=== PATIENT | male | born 1990 | race Caucasian/White ===

== ENCOUNTER 2017-04-21 01:00 | Emergency (ER) | payer MEDICAID ==
--- NOTE | ~2017-04-21 | EKG ---
PATIENT: GENIA FATIMA UNIT #: [id number] Ventricular Rate: 60 BPM Atrial Rate: 60 BPM P-R Interval: 128 ms QRS Duration: 110 ms Q-T Interval: 448 ms QTC Calculation(Bezet): 448 ms P [place]: 76 degrees Calculated R [place]: 115 degrees Calculated T [place]: 48 degrees Diagnosis Line: Sinus rhythm with Premature atrial complexes Diagnosis Line: Right axis deviation Diagnosis Line: Abnormal ECG Diagnosis Line: Diagnosis Line: Confirmed by DEX CALDWELL MD ([id number]) on Diagnosis Line: 04/21/2017 7:33:13 AM INTERPRETING MD: JAVI DENNY
--- NOTE | ~2017-04-21 | CR63 ---
[facility] A Service of [facility] & [facility] RADIOLOGY TEXT RESULTS PATIENT: GENIA FATIMA LOCATION: [facility] : [birth year] UNIT #: [id number] AGE: [address]: Alo Acuña SEX: M ORDER DR: [id number] [facility] [address] [place], [place] [address] [id number] E MR#: [id number] Acc #: [id number] NAME: GENIA FATIMA : 1990 SEX: M STUDY DATE/TIME: 04/21/2017 02:57 UNIT: [facility] ROOM: STUDY DESCRIPTION: CR Chest 2 View Attending Physician: Alo Acuña P.A.-C. Ordering Physician: Alo Acuña P.A.-C. Primary Care Physician: Primary Care Physician No MEDICAL IMAGING REPORT This report is preliminary unless electronic signature is present EXAM Chest x-ray 04/21 at 02:57 INDICATIONS Chest pain and headache that started today. Patient did methamphetamine today. Comparison is 05/23/2012. FINDINGS PA and lateral examination of the chest upright shows a good expansion of the parenchyma with a normal distribution of the pulmonary vascularity. There is no indication of congestion, effusion, infiltrate, tumor, or nodular density. The pleural reflections and diaphragmatic contours are normal. The cardiac silhouette and mediastinal anatomy is within normal limits. IMPRESSION Normal chest. Dictated by... Armando Morgan Jr., M.D. THIS IS AN ELECTRONICALLY VERIFIED REPORT Armando Morgan Jr., M.D. at 04/21/2017 6:54 AM ADAM/chad TD: 04/21/2017 03:31 JOB #: [id number] MEDICAL IMAGING REPORT Page 1 of 1 COPY
--- NOTE | ~2017-04-21 | CT71 ---
[facility] A Service of [facility] RADIOLOGY TEXT RESULTS PATIENT: GENIA FATIMA LOCATION: [facility] : 90 UNIT #: [id number] AGE: [address]: Alo Acuña SEX: M ORDER DR: [id number] [facility] [address] [place], [place] [address] [id number] E MR#: [id number] Acc #: [id number] NAME: GENIA FATIMA : 1990 SEX: M STUDY DATE/TIME: 04/21/2017 03:17 UNIT: [facility] ROOM: STUDY DESCRIPTION: CT Head Wo Contrast Attending Physician: Alo Acuña P.A.-C. Ordering Physician: Alo Acuña P.A.-C. MEDICAL IMAGING REPORT This report is preliminary unless electronic signature is present EXAM Head CT 04/21 at 03:17 INDICATIONS Severe headache and confusion today. Possible overdose. History of heroin and meth views. Comparison is 02/25/2007. TECHNIQUE Axial noncontrast images were obtained from the skull base to the vertex. This CT exam was performed with one or more of the following radiation dose reduction techniques: Automatic exposure control, adjustment of mA and/or kV according to patient size, and iterative reconstruction. FINDINGS Ventricular size and configuration are normal. There is no evidence of acute infarct or hemorrhage. There are no extraaxial fluid collections. No mass lesion or mass effect is seen. There are no skull fractures. IMPRESSION Normal noncontrast head CT. Dictated by... Armando Morgan Jr., M.D. THIS IS AN ELECTRONICALLY VERIFIED REPORT Armando Morgan Jr., M.D. at 04/21/2017 6:54 AM ADAM/chad TD: 04/21/2017 03:55 JOB #: [id number] [facility] A Service of [facility] RADIOLOGY TEXT RESULTS PATIENT: GENIA FATIMA LOCATION: [facility] : 90 UNIT #: [id number] AGE: [address]: Alo Acuña PAC SEX: M ORDER DR: MEDICAL IMAGING REPORT Page 1 of 1 COPY
[~2017-04-21 01:00] MED LIST: ALBUTEROL17 GM INH; AZITHROMYCIN250 MG PO; BENZONATATE PO; DITROPAN PO; FLEXERIL10 MG PO; IBUPROFEN PO; NO MEDICATIONS; OTC LAXATIVE; PREDNISONE PO
[2017-04-21 03:09] LABS: BASOPHIL% 0.3 % (0-2.5); EOSINOPHIL% 0.1 % (0.0-7.0); HEMATOCRIT 47.2 % (38.0-50.0); HEMOGLOBIN 15.9 gm/dL (13.0-16.0); LYMPHOCYTE# 1.4 X10e3 (1.0-3.5); MEAN CELL VOLUME 90.2 FL (83-96); MEAN CORPUSCULAR HEMOGLOBIN 30.5 PG (28-34); MEAN CORPUSCULAR HGB CONC 33.8 g/dL (30-36); MEAN PLATELET VOLUME 8.6 FL (6.5-11.5); MONOCYTE# 0.3 X10e3 (0-1.0); MONOCYTE% 3.2 % (3.0-12.0); NEUTROPHIL# 7.6 X10e3 (1.5-7.1); NEUTROPHIL% 81.4 % (40-75); PLATELET COUNT 250 X10e3 (140-420); RED BLOOD COUNT 5.23 X10e (3.90-5.60); RED CELL DISTRIBUTION WIDTH 12.9 % (11.0-15.5); WHITE BLOOD COUNT 9.3 X10e3 (4.0-10.5)
[2017-04-21 03:11] LABS: AMPHETAMINE POS (NEG); BARBITURATES NEG (NEG); BENZODIAZEPINES NEG (NEG); COCAINE NEG (NEG); MARIJUANA NEG (NEG); OPIATES POS (NEG); TRICYCLIC ANTIDEPRESSANTS NEG (NEG); U METHADONE NEG (NEG)
[2017-04-21 03:21] LABS: DIFF IND NO
[2017-04-21 03:32] LABS: ACETAMINOPHEN <10 ug/mL; ALBUMIN SERUM 4.8 g/dL (3.5-5.0); ALCOHOL BLOOD <5 mg/dL (0); ALKALINE PHOSPHATASE 63 U/L (32-92); ALT (SGPT) 14 U/L (10-40); AST (SGOT) 15 U/L (10-42); BILIRUBIN, DIRECT 0.1 mg/dL (0.0-0.2); BILIRUBIN,INDIRECT 0.6 mg/dL (0.0-0.9); BILIRUBIN,TOTAL 0.7 mg/dL (0.2-2.0); BLOOD UREA NITROGEN 10 mg/dL (9-23); CALCIUM SERUM 9.7 mg/dL (8.4-10.2); CARBON DIOXIDE 30 mmol/L (22-31); CHLORIDE 106 mmol/L (100-111); GLOM FILT RATE Estimated 102.7 mL/min (>60); GLUCOSE FASTING 103 mg/dL (70-110); POTASSIUM 3.4 mmol/L (3.5-5.1); PROTEIN TOTAL SERUM 7.6 g/dL (6.0-8.3); SALICYLATE <4.0 mg/dL; SODIUM 145 mmol/L (135-145)
== END 2017-04-21 06:56 ==
LOC: CED 01:00
PROVIDERS: Physician Assistant
DX: F11.10 Opioid abuse, uncomplicated (principal); F15.10 Other stimulant abuse, uncomplicated; F32.9 Major depressive disorder, single episode, unspecified; R51 Headache
CPT/HCPCS: 36415; 70450; 71020; 80048; 80076; 80307; 85025; 93005; 96360; 99285; G0480

== ENCOUNTER 2017-04-21 04:00 | Inpatient (IN) | payer MEDICAID ==
[~2017-04-21] VITALS: Ht 188 cm; Wt 88.5 kg
--- NOTE | ~2017-04-21 | DS ---
Unit #: [id number] #: [id number] Patient: GENIA FATIMA [id number] [place] [address] [id number] MR#: [id number] NAME: GENIA FATIMA. ROOM: [facility] Age: 27 Sex: M Admission Date: 04/21/2017 : 1990 Discharge Date: 04/24/2017 Attending Physician: Brandon Oro M.D. Primary Care Physician: No Primary Care Physician DISCHARGE SUMMARY REASON FOR ADMISSION The patient is a 27-year-old single white male admitted to the [facility] unit with complaints of ongoing abuse of opioids and some suicidal ideation. HOSPITAL COURSE The patient was admitted to the [address] [place] [address] and placed on suicide precautions. Initially the patient was begun on Seroquel given concerns that he may be exhibiting symptoms of a bipolar depression. He reported intolerable sedation with this medication and was instead begun on Depakote ER 750 mg at bedtime. He tolerated this medication well and actively participated within the therapeutic milieu. By 04/24/2017 the patient was in bright spirits and requesting discharge. He was in agreement with the plan for followup in the intensive outpatient program. Discharge was ordered. FINAL DIAGNOSES 1. Methamphetamine use disorder. 2. Opiate use disorder. 3. Bipolar disorder type 2, most recent episode depressed. FOLLOWUP CARE Followup will take place through the auspices of [facility] resources and the chemical dependence intensive outpatient program provided by this facility. The patient was informed of the potential pancreatic, lymphatic and hematologic risks of long-term Depakote use and a Depakote level is recommended within the next 3-5 days. DISCHARGE MEDICATIONS Depakote ER 750 mg at bedtime for mood stabilization. DIET AND ACTIVITY No dietary or physical restrictions placed on the patient at the time of discharge. Dictated by... Lila Mace TD: 04/26/2017 13:37 Unit #: [id number] #: [id number] Patient: GENIA FATIMA JOB #: [id number] DISCHARGE SUMMARY Page 1 of 1 X Brandon Oro MD X DISCHARGE SUMMARY
--- NOTE | ~2017-04-21 | HP ---
Unit #: [id number] #: [id number] Patient: GENIA FATIMA [id number] [place] [address] [id number] I MR#: [id number] NAME: GENIA FATIMA. ROOM: 77 Age: 27 Sex: M Admission Date: 04/21/2017 : 1990 Attending Physician: Brandon Oro M.D. Admitting Physician: Brandon Oro M.D. Primary Care Physician: Primary Care Physician No HISTORY AND PHYSICAL HISTORY OF PRESENT ILLNESS The patient is a 27-year-old male admitted to [facility] on 04/21/2017 for suicidal ideation and opiate abuse. PAST MEDICAL HISTORY History of rhabdomyolysis in 2014. PAST SURGICAL HISTORY Oral. SOCIAL HISTORY He is unemployed. He lives with his girlfriend. Smokes half pack cigarettes daily. Uses Lortab and methamphetamine. FAMILY MEDICAL HISTORY Noncontributory. ALLERGIES No known drug allergies. CURRENT MEDICATIONS The patient is not on any home medications. REVIEW OF SYSTEMS CONSTITUTIONAL: No fever or chills. HEENT: Denies any sore throat, ear pain or runny nose. CARDIOVASCULAR: Denies chest pain, irregular heart rhythm or palpitations. CHEST: Denies shortness of breath or cough. No hemoptysis. GASTROINTESTINAL: Denies nausea, vomiting, diarrhea or chronic constipation. ENDOCRINE: Denies history of increased thirst or urination. No recent significant weight loss or gain. GENITOURINARY: Denies dysuria, frequency, or hematuria. SKIN: Denies any rashes. HEMATOLOGIC: Denies history of increased bleeding or bruising. MUSCULOSKELETAL: Denies any hot, swollen joints. No generalized muscle pain. NEUROLOGIC: Denies problems with vision or speech. No frequent, severe headaches. No numbness, tingling or weakness in any extremities. Denies loss of bladder or bowel control. PHYSICAL EXAMINATION GENERAL: He is awake, alert, and oriented in no acute distress. Unit #: [id number] #: [id number] Patient: GENIA FATIMA VITAL SIGNS: Temperature 98.4, heart rate 53, respirations 12, blood pressure 107/69. HEIGHT: 6 feet 2. WEIGHT: 195 pounds. SKIN: Warm and dry without rash or lesion. HEENT: Normocephalic. TMs not viewed. Oral and nasal passages clear. Conjunctivae clear. PERRLA. EOMs intact. NECK: Supple without lymphadenopathy or thyromegaly. HEART: Regular rate and rhythm without murmur. LUNGS: Clear. ABDOMEN: Soft, nontender. : Not done. EXTREMITIES: No evidence of cyanosis, clubbing or edema. Moves all without focal deficit. NEUROLOGICAL: Grossly within normal limits. Cranial Nerves: II: Visual yi are intact. III, IV AND : Extraocular movements are intact. Pupils are equal, round and reactive to light. V: Facial sensation is grossly normal. VII: Facial movements and expression are normal. VIII: Auditory acuity grossly intact. IX, X: Uvula is midline. Phonation is normal. XI: Patient shrugs shoulders and turns head normally. XII: Tongue protrudes in the midline. Sensory and Motor Function: Sensory and motor sensation is grossly normal. Motor: moves all extremities well. IMPRESSION 1. Psychiatric admission. 2. Opiate abuse. 3. History of rhabdo. RECOMMENDATIONS PSYCHIATRIC: Per psychiatrist. MEDICAL: No contraindication to participate in this facility activities. MEDICAL PROGNOSIS Good. MEDICAL CONDITION Stable. Dictated by... Naveed Duggan/jones TD: 04/21/2017 11:55 JOB #: [id number] Unit #: [id number] #: [id number] Patient: GENIA FATIMA HISTORY AND PHYSICAL Page 1 of 1 X GISELE TARIQ APRN HISTORY AND PHYSICAL
--- NOTE | ~2017-04-21 | PN ---
Unit #: [id number] #: [id number] Patient: GENIA FATIMA [id number] [facility] [address] [place] [address] [id number] I MR#: [id number] NAME: GENIA FATIMA. ROOM: P180 Age: 27 Sex: M Admission Date: 04/21/2017 : 1990 Attending Physician: Brandon Oro M.D. Admitting Physician: Brandon Oro M.D. Primary Care Physician: Primary Care Physician Lucy DIAZ PROGRESS NOTES DATE 04/22/2017 DISCUSSION The patient complains of oversedation with Seroquel and requests "something else (1) __," but we will discontinue Seroquel and begin a trial of Depakote ER this evening. The patient is reporting some reduction in suicidal ideation. He is reporting significant opioid withdrawal symptoms complaining that his legs are in significant pain. Dictated by... Brandon Oro M.D. CB/jones TD: 04/22/2017 12:52 JOB #: [id number] JOE PROGRESS NOTES Page 1 of 1 X Brandon Oro MD PROGRESS NOTE
--- NOTE | ~2017-04-21 | PN ---
Unit #: [id number] #: [id number] Patient: GENIA FATIMA [id number] [facility] [address] [place] [address] [id number] I MR#: [id number] NAME: GENIA FATIMA. ROOM: P180 Age: 27 Sex: M Admission Date: 04/21/2017 : 1990 Attending Physician: Brandon Oro M.D. Admitting Physician: Brandon Oro M.D. Primary Care Physician: Primary Care Physician Lucy DIAZ PROGRESS NOTES DATE 04/23/2017 DISCUSSION The patient appears much brighter today. He continues to complain of some symptoms of opioid withdrawal specifically soreness in his legs but otherwise appears much brighter and tolerated initiation of Valproic acid last evening without complaints. Should he sustain progress discharge could take place as early as tomorrow. Dictated by... Brandon Oro M.D. CB/felton TD: 04/23/2017 22:31 JOB #: [id number] JOE PROGRESS NOTES Page 1 of 1 X Brandon Oro MD X PROGRESS NOTE
--- NOTE | ~2017-04-21 | PA ---
Unit #: [id number] #: [id number] Patient: GENIA FATIMA [id number] [place] [address] [id number] I MR#: [id number] NAME: GENIA FATIMA. ROOM: 77 Age: 27 Sex: M Admission Date: 04/21/2017 : 1990 Date of Assessment: 04/21/2017 Attending Physician: Brandon Oro M.D. Admitting Physician: Brandon Oro M.D. Primary Care Physician: Primary Care Physician No PSYCHIATRIC ASSESSMENT IDENTIFYING INFORMATION The patient is a 27-year-old white male admitted after he had voiced suicidal ideation related to the recent of his brother. INFORMANT(S) Patient. RELIABILITY Good. CHIEF COMPLAINT None given. HISTORY OF PRESENT ILLNESS The patient is a 27-year-old white male with a history of methamphetamine and heroin abuse. He had presented to this facility on 04/19 and was referred to the intensive outpatient program. However, he had returned early this morning reporting thoughts of suicide related to the recent of his brother who in December from unknown causes. The patient reports increasing racing thoughts as well as irrational behavior since the of his brother leading to believe that he may be suffering from a bipolar spectrum disorder. The patient reports that he sold his car and bought a bike, had racing thoughts and lived in a tent for several weeks after his brother's . The patient currently endorses positive suicidal ideation and is tearful during interview. He does, however, tend to minimize his substance use. The patient reports a history of treatment at the [facility] and reports that he was able to maintain sobriety for 2-1/2 years after his treatment there. He denies any history of intravenous drug use. PAST PSYCHIATRIC HISTORY As noted previously, the patient was in the [facility] at one point. FAMILY HISTORY Noncontributory. SOCIAL HISTORY The patient lives alone. He is not presently employed. He reports substance use as noted previously. He completed his GED and is a smoker. MEDICAL HISTORY Noncontributory. Unit #: [id number] #: [id number] Patient: GENIA FATIMA MEDICATION HISTORY None. ALLERGIES None. MENTAL STATUS EXAM At this time, reveals the patient to be a well-developed, well-nourished heavily tattooed white male appearing his stated age. He is in no apparent physical distress at the time of the examination. He is awake, alert, oriented in all spheres. His mood is tearful. His affect labile. Speech is generally relevant and coherent. There are no gross deficits in memory or cognition noted. Intelligence is judged to be in the average range based on fund of knowledge. The patient is cooperative throughout the interview. He is currently endorsing positive suicidal ideation. He denies homicidal ideation. He denies any psychotic symptoms. His judgement and insight appear to be reasonably intact. ASSETS AND LIABILITIES Patient's assets, motivation for change. Liabilities, lack of resources. ADMITTING DIAGNOSES 1. Bipolar disorder, depressed phase. 2. Opioid use disorder. 3. Methamphetamine use disorder. PSYCHIATRIC PLAN/TREATMENT GOALS The patient remains hospitalized for safety and stabilization. We will begin a trial of Seroquel 50 mg at bedtime to address the patient's depressive symptoms in the context of what appears to be a bipolar diagnosis. The importance of abstinence from psychoactive substances is certainly discussed at length with the patient today. Encouragingly, the patient has participated actively within the therapeutic milieu all day. DISCHARGE PLANNING Followup to take place through the auspices of community mental health resources. ESTIMATED LENGTH OF STAY Five to seven days. Dictated by... Brandon Oro M.D. ZACHERY/tiana TD: 04/21/2017 15:46 JOB #: [id number] Unit #: [id number] #: [id number] Patient: GENIA FATIMA PSYCHIATRIC ASSESSMENT Page 1 of 1 X Brandon Oro MD PSYCHIATRIC ASSESSMENT
== END 2017-04-24 15:30 | DRG 885 ==
LOC: P1E 08:00
DX: F31.9 Bipolar disorder, unspecified (principal); R45.851 Suicidal ideations; F11.10 Opioid abuse, uncomplicated; F15.10 Other stimulant abuse, uncomplicated
CPT/HCPCS: 86592